=== PATIENT | male | born 1945 | race Caucasian/White ===

== ENCOUNTER → 2021-01-02 | Outpatient (CLI) | payer MEDICARE ==
[2021-01-02] VITALS (8 sets, daily range): BP systolic 120–155; BP diastolic 59–87
[~2021-01-02] VITALS: Ht 167.6 cm; Wt 84.0 kg
[~2021-01-02] MED LIST: ALBU2.5V8 IH; APIX5TAB PO; CHOL10004 PO; CONTRAST GIVEN. MC PRN; DILT120C99 PO; DOCU-109 PO; DRON400T6 PO; GLUC-11 PO; HEPARIN for IV BOLUS 10,000 UNIT/10 ML VIAL. IART ONE; HEPARIN for IV BOLUS 10,000 UNIT/10 ML VIAL. ONE; IOHEXOL 300 MG/ML 100ML VIAL. IART ONE; IOHEXOL 300 MG/ML 100ML VIAL. ONE; LIDOCAINE 1% Multi-Dose 20 ML VIAL. INJ ONE; LIDOCAINE 1% Multi-Dose 20 ML VIAL. ONE; LISI20TA18 PO; METO25TA4 PO; MIDAZOLAM HCL/PF 2 MG/2 ML VIAL. IV ONE; MIDAZOLAM HCL/PF 2 MG/2 ML VIAL. ONE; NAPR500T8 PO; NITROGLYCERIN 200 MCG/2 ML SYRINGE FOR CATH/VASC LAB. IART ONE; NITROGLYCERIN 200 MCG/2 ML SYRINGE FOR CATH/VASC LAB. ONE; PANT20TA2 PO; PRED5TAB PO; TAMS0.4C97 PO; TRAM50TA PO; VERAPAMIL 5 MG/2 ML VIAL. IART ONE; VERAPAMIL 5 MG/2 ML VIAL. ONE; fentaNYL PF VIAL 100 MCG/2 ML VIAL IV ONE; fentaNYL PF VIAL 100 MCG/2 ML VIAL ONE
[2021-01-02 10:30] LABS: HEMATOCRIT 31.8 % (39.0-53.0); HEMOGLOBIN 10.7 g/dL (13.0-17.5); RED BLOOD COUNT 3.7 x10^6/uL (4.30-5.70); RED CELL DISTRIBUTION WIDTH 16.3 % (11.5-14.5); WHITE BLOOD COUNT 5.5 x10^3/uL (4.0-11.0)
[2021-01-02 10:41] LABS: CREATININE 1.1 mg/dL (0.7-1.3); GFR 65.4
[2021-01-02 10:47] LABS: PROTHROMBIN TIME PATIENT 12.4 SEC (11.7-14.0)
--- NOTE | 2021-01-02 11:17 | PDOC ---
MODERATE SEDATION ASSESSMENT RISKS/ALTERNATIVES Risks/Alternatives Risks and alternatives of this type of sedation and procedure discussed with: RISK/ALTERNATIVES: Patient H & P ON CHART H & P H & P on chart and reviewed for co-morbid conditions and appropriate labs. H&P ON CHART: Yes STATUS PREG STATUS ASSESSED: N/A MEDS/ALLERGIES REVIEWED Meds/Allergies Reviewed Medications and Allergies including time and route of recently administered narcotics and sedatives. MEDS/ALLERGIES REVIEWED: Yes ASA RATING ASA RATING: II AIRWAY ASSESSMENT Airway Assessment Airway patency, oral function limitations, presence of caps, crowns, dentures, partials, and ability to extend neck assessed. AIRWAY ASSESSMENT: Yes MALLAMPATI SCORE MALLAMPATI SCORE: II PRE-SEDATION ASSESSMENT PRE-SEDATION ASSESSMENT: Yes NESS SWAN MD Jan 02, 2021 11:17
--- NOTE | 2021-01-02 14:11 | NUR ---
TR band removed arm armboard reapplied. Discharge instructions reviewed with patient. Pt home with family in private vehicle
--- NOTE | 2021-01-03 13:14 | CARD ---
MR#: [id number] Date of Study: 01/02/2021 Ordering Physician: NESS SWAN, Referring Physician: NESS SWAN, Tech: RT Fadumo(R) APPROVED REPORT Technologist: RT Fadumo(R) Nurse: Kayli Hollingsworth RN Procedure(s) performed: FLUORO TIME 2.2 MIN DOSE [id number] MODERATE SEDATION 35MIN CONTRAST 50ML OMNI RHC, LHC, Coronary angiography [facility] Clinical Frailty Scale [facility] Clinical Frailty Scale: Mildly Frail Heart Failure Heart Failure: Yes If Yes, Newly Diagnosed: Yes If Yes, HF Type: Diastolic If Yes, NYHA Class: Class II CASE TECHNIQUE IV conscious sedation was used throughout procedure with appropriate monitoring and was performed in the presence of a registered nurse who was an independent trained observer other than the physician p erforming the procedure. During this case, Fluoroscopy and low osmolar contrast were used for imaging . Specimen(s) Removed: N/A Estimated Blood loss: 15 cc's. PROCEDURE NARRATIVE Clinical information: 75-year-old man who had exertional dyspnea presents to the hospital for planned right and left heart catheterization. Procedure details: After appropriate informed consent the right neck and right wrist were prepped and draped in usual st erile fashion. Access was obtained in the right internal jugular vein via ultrasound guidance under 1% lidocaine loc al anesthesia and a 5 [place] sheath was placed. A 6 [place] sheath was placed in the right radial art mao. Diagnostic angiography was performed with a 6 [place] TIG catheter and left ventricular end-carreon tolic pressure was obtained with a 6 [place] TIG catheter. Right heart catheterization was performed with a 5 [place] PA catheter. Pressures and saturations were obtained. At case completion the right radial sheath was removed and hemostasis was achieved with a [employer] radi al band. The 5 [place] sheath was removed from the neck and hemostasis was achieved with manual compr ession. Findings: Right heart catheterization: RA 3 mmHg RV 25/5 PA 23/8 Wedge 8 mmHg PA saturation 75% Arterial saturation 98% Cardiac output 7.6 L/min Cardiac index 4.1 Aorta: 120/80 LVEDP 5 mmHg No LV to aortic pullback gradient. Coronary angiography: Left main is a large-caliber vessel with normal angiographic appearance LAD is a large-caliber vessel with a mid 30% stenosis Ramus is a moderate caliber vessel with normal angiographic appearance Left circumflex is a moderate caliber nondominant vessel with normal angiographic appearance OM1 is a moderate caliber vessel with normal angiographic appearance RCA is a large caliber dominant vessel with normal angiographic appearance RPDA is a moderate caliber vessel with normal angiographic appearance No acute complications noted. Conclusion 1. Normal biventricular filling pressures 2. No evidence of pulmonary hypertension 3. Normal cardiac output. 4. No significant coronary artery disease. Recommendations Aggressive Medical Therapy Signed by : Ness Swan, Electronically Approved : 01/03/2021 13:13:26
== END | disposition home or self-care (01) ==
LOC: CCL 09:53
PROVIDERS: ATTEND Internal Medicine Cardiovascular Disease
DX: R06.09 Other forms of dyspnea (principal); I10 Essential (primary) hypertension; E78.00 Pure hypercholesterolemia, unspecified; K21.9 Gastro-esophageal reflux disease without esophagitis; J45.909 Unspecified asthma, uncomplicated; Z85.828 Personal history of other malignant neoplasm of skin; Z79.899 Other long term (current) drug therapy; Z98.890 Other specified postprocedural states; Z87.891 Personal history of nicotine dependence
CPT/HCPCS: 36415; 76937; 80048; 85027; 85610; 93460; 99152; 99153; C1769; C1773; C1892; C1894; J1644; J2250; J3010; J3490; Q9967